=== PATIENT | female | born 1945 ===

== ENCOUNTER → 2024-02-24 09:35 | Outpatient (BNVA) | payer MEDICARE, OTHER, SELFPAY | PROVIDERS: Visit Provider Specialist | DX: L29.9 Pruritus, unspecified (principal); R41.3 Other amnesia; R09.81 Nasal congestion; G89.29 Other chronic pain; M54.9 Dorsalgia, unspecified; R06.09 Other forms of dyspnea | CPT/HCPCS: 99204 ==